=== PATIENT | female | born 1985 | race Caucasian/White ===

== ENCOUNTER 2018-05-24 05:45 | Day surgery (SDC) | payer OTHER ==
[2018-05-24] VITALS (12 sets, daily range): BP systolic 103–119; BP diastolic 62–73; PULSE 78–98; RESP 15–21; Ht 165.1 cm; Wt 92.2 kg
[~2018-05-24] VITALS: Ht 165.1 cm; Wt 92.2 kg
[2018-05-24] MEDS ORDERED: CEFAZOLIN 1 GM INJ ONE (07:00)
[2018-05-24] MEDS ORDERED: DEXAMETHASONE 4 MG/ML 5 ML INJ ONE (07:00)
[2018-05-24] MEDS ORDERED: METOCLOPRAMIDE 10 MG INJ ONE (07:00)
[2018-05-24] MEDS ORDERED: BUPIVACAINE 0.5%/EPI (SDV) 30 ML INJ ONE (07:09)
--- NOTE | 2018-05-24 07:25 | PREAC ---
Date/Time of Note Date/Time of Note DATE: 05/24/18 TIME: 07:24 Anesthesia Eval and Record Evaluation Time Pre-Procedure Interview DATE: 05/24/18 TIME: 07:24 Age 33 Sex female NPO: 8 hrs Preoperative diagnosis ventral hernia Planned procedure lap hernia repair w/ meshs Past Medical History Past Medical History: Includes Pulm: Asthma Surgery & Anesthesia Issues No known issue Meds Anticoagulation: No Beta Lyla within 24 hr: No Reason Beta Lyla not given: Pt. not on B-Lyla No Active Prescriptions or Reported Meds Meds reviewed: Yes Allergies Coded Allergies: Penicillins (Verified Allergy, Unknown, CHILDHOOD, 05/24/18) Allergies Reviewed: Yes Labs/Studies Labs Reviewed: Reviewed by anesthesiologist test: Negative Pre-procedure Exam Last vitals Vital Signs Date Temp Pulse Resp B/P (MAP) Pulse Ox O2 O2 Flow FiO2 Time Delivery Rate 05/24/18 98.9 84 18 119/72 97 Room Air 06:24 (88) Airway: Adequate mouth opening, Adequate thyromental dist Mallampati: Mallampati III Teeth: Normal Lung: Normal Heart: Normal ASA Physical Status ASA physical status: 2 Emergency: None Planned Anesthetic General/MAC: ETT Planned Pain Management Single shot nerve block, Parenteral pain med, Local by surgeon Pre-operative Attestations Prior to commencing anesthesia and surgery, the patient was re-evaluated, there was verification of: *The patient's identity *The results of appropriate recent lab work and preoperative vital signs *The above evaluation not changing prior to induction *Anesthetic plan, risk benefits, alternative and complications discussed with patient/family; questions answered; patient/family understands, accepts and wishes to proceed. MINESH GROVES MD May 24, 2018 07:25
--- NOTE | 2018-05-24 07:29 | HPN ---
Date/Time of Note Date/Time of Note DATE: 05/24/18 TIME: 07:29 Interval H&P Admission Note Pt. seen H&P reviewed: No system changes TRI FIELDS MD May 24, 2018 07:29
[2018-05-24] MEDS ORDERED: FENTAnyl 50 MCG/ML VIAL IV PRN ×2 (07:30)
[2018-05-24] MEDS ORDERED: LEVALBUTEROL (NEB) 1.25 MG/0.5 ML AMP HHN PRN (07:30)
[2018-05-24] MEDS ORDERED: LABETALOL HCL 20MG INJ IV PRN (07:30)
[2018-05-24] MEDS ORDERED: MEPERIDINE 25 MG INJ IV PRN (07:30)
[2018-05-24] MEDS ORDERED: IPRATROPIUM (NEB) 0.5 MG/2.5 ML AMP HHN PRN (07:30)
[2018-05-24] MEDS ORDERED: HYDROmorphONE 1 MG/5 ML IV SYRINGE IV PRN ×3 (07:30)
[2018-05-24] MEDS ORDERED: DIPHENHYDRAMINE 50 MG INJ IV PRN (07:30)
[2018-05-24] MEDS ORDERED: KETOROLAC 30 MG INJ IV PRN (07:30)
[2018-05-24] MEDS ORDERED: hydrALAzine 20 MG INJ IV PRN (07:30)
[2018-05-24] MEDS ORDERED: ONDANSETRON 4 MG INJ IV PRN ×2 (07:30→08:30)
[2018-05-24] MEDS ORDERED: MIDAZOLAM 1 MG/ML 2 ML INJ ONE (07:39)
[2018-05-24] MEDS ORDERED: FENTAnyl 50 MCG/ML VIAL ONE ×2 (07:40→07:59)
[2018-05-24] MEDS ORDERED: PROPOFOL 20 ML ONE (07:40)
[2018-05-24] MEDS ORDERED: ROCURONIUM 50 MG INJ ONE (07:56)
[2018-05-24] MEDS ORDERED: SUCCINYLCHOLINE CHLORIDE 100 MG/5 ML SYG IV ONE (07:56)
[2018-05-24] MEDS ORDERED: GLYCOPYRROLATE 0.4 MG INJ ONE (07:56)
[2018-05-24] MEDS ORDERED: LIDOCAINE 2% (SDV) 5 ML INJ ONE (07:56)
[2018-05-24] MEDS ORDERED: NEOSTIGMINE 3 MG/3 ML SYRINGE ONE (07:56)
[2018-05-24] MEDS ORDERED: ONDANSETRON 4 MG INJ ONE (07:57)
[2018-05-24] MEDS ORDERED: ROPIVACAINE 0.5 % 30 ML VIAL ONE (07:57)
--- NOTE | 2018-05-24 08:22 | OPR ---
Date/Time of Note Date/Time of Note DATE: 05/24/18 TIME: 08:18 Operative Report Procedure Date: May 24, 2018 Preoperative Diagnosis Left inguinal hernia without obstruction Postoperative Diagnosis Left inguinal hernia (indirect) Operation/Procedure Performed 1. Repair left inguinal hernia with extra large plug 2. Left ilioinguinal nerve block Surgeon Tri Fields MD Chainstitch Hemmer None Anesthesia Type: general Anesthesiologist: MINESH GROVES MD Estimated Blood Loss: minimal Transfusion none Specimen None Grafts/Implants Bard extra-large PerFix plug Tubes/Drains None Complications none Pt Condition Post Procedure: stable Disposition: PACU Indications Symptomatic left inguinal hernia Procedure Description After satisfactory general anesthesia was achieved, the lower abdomen was prepped and draped in the usual fashion. A 5 cm transverse suprapubic left groin incision was made and carried down to the level of the external oblique which was opened in the direction of its fibers. The nerve was retracted and preserved. There was a large indirect sac which was dissected circumferentially to the internal ring. The round ligament was divided at the pubic tubercle with electrocautery. The hernia was reduced. The reduction was maintained by placement of an extra-large plug secured circumferentially to healthy fascia with interrupted 3-0 Vicryl suture. Next the flat portion of the mesh was cut and fashioned to fit in the floor the canal is an overlay. It was anchored at the pubic tubercle with 2-0 Novafil, laterally to inguinal ligament with interrupted 2-0 Novafil, and medially to conjoined tendon with interrupted 2-0 Novafil. Nerve was then replaced beneath the external oblique which was closed with a running 3-0 Vicryl suture. Next a left inguinal nerve block was performed. 10 cc of 0.25% Marcaine with epinephrine were injected into the fascia 1 cm medial and inferior to the left anterior iliac spine. 10 more cc of local anesthetic were injected into the skin and subcutaneous tissues. Roseanna's fascia was closed with interrupted 3-0 Vicryl and skin closed with subcuticular absorbable jesse. Sponge and needle counts were reported as correct x2. TRI FIELDS MD May 24, 2018 08:22
[2018-05-24] MEDS ORDERED: OXYCODONE/ACETAMINOPHEN (5/325) TAB PO PRN ×2 (08:30)
[2018-05-24] MEDS ORDERED: morphine 2 MG INJ IV PRN (08:30)
--- NOTE | 2018-05-24 08:47 | PAC ---
Date/Time of Note Date/Time of Note DATE: 05/24/18 TIME: 08:46 Post-Anesthesia Notes Post-Anesthesia Note Last documented vital signs Vital Signs Date Temp Pulse Resp B/P (MAP) Pulse Ox O2 O2 Flow FiO2 Time Delivery Rate 05/24/18 97.9 08:42 05/24/18 84 18 119/72 97 Room Air 06:24 (88) Activity: WNL Respiratory function: WNL Cardiovascular function: WNL Mental status: Baseline Pain reasonably controlled: Yes Hydration appropriate: Yes Nausea/Vomiting absent: Yes MINESH GROVES MD May 24, 2018 08:47
== END 2018-05-24 10:00 | disposition home or self-care (01) ==
LOC: SDS 05:45
PROVIDERS: ATTEND Surgery
DX: K40.90 Unilateral inguinal hernia, without obstruction or gangrene, not specified as recurrent (principal); J45.909 Unspecified asthma, uncomplicated; Z88.0 Allergy status to penicillin
CPT/HCPCS: 49505; C1781; J0690; J1100; J1170; J1885; J2250; J2405; J2710; J2765; J2795; J3010; Z7512; Z7610